=== PATIENT | female | born 1970 | race Caucasian/White ===

== ENCOUNTER 2019-07-11 14:17 | Emergency (ER) | payer MEDICAID ==
[~2019-07-11] VITALS: Ht 157.5 cm; Wt 61.0 kg
[~2019-07-11 14:17] MED LIST: NO HOME MEDS; niCARDipine in NS 40mg/200ml (0.2mg/ml) IVPB IV ONE; sod chloride 0.9% 10ml flush syringe IV ONE
--- NOTE | 2019-07-11 14:54 | NUR ---
patient back in the room from head ct.
--- NOTE | 2019-07-11 14:55 | NUR ---
candi stroke RN at bedside.
[2019-07-11] MEDS ORDERED: ondansetron/PF 4mg/2ml inj IV ONE (15:00)
[2019-07-11] MEDS ORDERED: morphine 4 MG/ML inj SYRINge IV ONE (15:00)
[2019-07-11] MEDS ORDERED: niCARdipine I.V. 50 MG in normal saline 250ml IV soln 230 ML IV SCH (15:00)
[2019-07-11 15:07] LABS: BASOPHILS # (AUTO) 0.1 X10'3 (0-0.2); BASOPHILS % (AUTO) 0.4 % (0-1); EOSINOPHILS % (AUTO) 0.2 % (0-6); HEMATOCRIT 43.3 % (35.0-45.0); HEMOGLOBIN 14.4 g/dl (12.0-16.0); LYMPHOCYTES # (AUTO) 2.4 X10'3 (1.1-4.8); LYMPHOCYTES % (AUTO) 12.2 % (21-51); MEAN CORPUSCULAR HEMOGLOBIN 30.6 PG (27.0-31.0); MEAN CORPUSCULAR HGB CONC 33.3 g/dL (33.0-36.5); MEAN CORPUSCULAR VOLUME 91.9 FL (78-98); MEAN PLATELET VOLUME 8.8 FL (7.4-10.4); MONOCYTES # (AUTO) 0.8 X10'3 (0-0.9); MONOCYTES % (AUTO) 4.2 % (2-12); NEUTROPHILS # (AUTO) 16.3 X10'3 (1.8-7.7); PLATELET COUNT 310 X10'3 (140-440); RED BLOOD COUNT 4.71 X10'6 (4.20-5.60); RED CELL DISTRIBUTION WIDTH 13.6 % (11.5-14.5); WHITE BLOOD COUNT 19.6 X10'3 (4.5-11.0)
[2019-07-11] MEDS ORDERED: LORazepam 2 mg/ml vial IV ONE (15:15)
[2019-07-11 15:21] LABS: ALANINE AMINOTRANSFERASE 18 U/L (12-78); ALBUMIN 4.1 G/DL (3.4-5.0); ALBUMIN/GLOBULIN RATIO 1.2 (1.1-1.5); ALKALINE PHOSPHATASE 54 IU/L (46-116); ANION GAP 16 (8-16); ASPARTATE AMINO TRANSFERASE 15 U/L (10-37); BILIRUBIN,TOTAL 0.6 MG/DL (0.1-1.0); BLOOD UREA NITROGEN 14 MG/DL (7-18); BUN/CREATININE RATIO 13.9 (6.6-38.0); CALCIUM 10.6 MG/DL (8.5-10.1); CHLORIDE 103 MMOL/L (99-107); CREATININE 1.01 MG/DL (0.40-0.90); GLUCOSE 152 MG/DL (70-104); POTASSIUM 3.3 MMOL/L (3.5-5.1); SODIUM 138 MMOL/L (135-145); TOTAL PROTEIN 7.4 G/DL (6.4-8.2); eGFR 58 ML/MIN
[2019-07-11 15:25] LABS: TROPONIN I < 0.04 NG/ML (0.0-0.05)
--- NOTE | 2019-07-11 15:27 | NUR ---
CALLED SBAR TO YURIY LY AT [facility],BP 185/89,NICARDIPINE INCREASED TO 10MCG/HR.EMS AT BEDSIDE TO TRANSFER PATIENT.
[2019-07-11 15:28] LABS: PARTIAL THROMBOPLASTIN TIME 22 SECONDS (22-32)
[2019-07-11 16:02] VITALS: BP 179/91
--- NOTE | 2019-07-11 16:45 | NUR ---
WENT WITH [facility] TO [facility] FOR PT TX. SEE VS THIS CHART FROM [phone] DURING TX. BEDSIDE REPORT TO YURIY RN #[id number]. UPON DELIVERY OF PT, PUPILS REMAINED EQUAL AND PT VERBALIZING AND FOLLOWING COMMANDS WITH NO CHANGE FROM [facility]. CARDENE WAS AT 15MG/HR.
== END 2019-07-11 16:03 | disposition short-term general hospital (02) ==
LOC: ER 14:19
DX: I61.9 Nontraumatic intracerebral hemorrhage, unspecified (principal); I10 Essential (primary) hypertension; F41.9 Anxiety disorder, unspecified; F32.9 Major depressive disorder, single episode, unspecified; F12.90 Cannabis use, unspecified, uncomplicated; F15.90 Other stimulant use, unspecified, uncomplicated; Z87.442 Personal history of urinary calculi; Z90.49 Acquired absence of other specified parts of digestive tract; Z90.710 Acquired absence of both cervix and uterus; Z98.890 Other specified postprocedural states; Z56.0 Unemployment, unspecified; Z59.0 Homelessness; Z91.018 Allergy to other foods
CPT/HCPCS: 36415; 70450; 80053; 84484; 85025; 85610; 85730; 93005; 96374; 99291; J2270; J2405; J7050